=== PATIENT | female | born 1955 | race Caucasian/White ===

== ENCOUNTER → 2019-06-11 | Outpatient (CLI) | payer MEDICARE ==
[~2019-06-11] MED LIST: DOBUTamine DRIP for NUC MED 500 MG in DEXTROSE/WATER 1 250ML.BAG IV ONE
--- NOTE | 2019-06-11 12:55 | ECHOS ---
STRESS ECHOCARDIOGRAM DATE OF SERVICE: 06/11/2019 INDICATIONS: Chest pain. MEDICATIONS: Pepcid, Losartan HCTZ, amlodipine. BASELINE HEART RATE: 84 BASELINE BLOOD PRESSURE: 143/66 MAXIMUM HEART RATE: 132 MAXIMUM BLOOD PRESSURE: 152/40 85% MPHR: 131 100% MPHR: 154 METS: MAXIMUM STAGE REACHED: TOTAL EXERCISE TIME: CLINICAL INFORMATION: Baseline rhythm is a sinus mechanism, rate of 84, normal axis and intervals, normal electrocardiogram. Baseline blood pressure 143/66 mmHg. Patient received infusion of dobutamine per protocol reaching a peak rate of 132 beats per minute which is equal to 85% maximum predicted heart rate. Peak blood pressure 152/40 mmHg. Electrocardiograph monitoring revealed no evidence of diagnostic ischemic ST-T deviation. Baseline echocardiogram revealed normal wall thickening and motion. At peak exercise, there was normal wall motion augmentation with no hypokinesis or dyskinesis. CONCLUSION: 1. Normal electrocardiographic response to dobutamine infusion. 2. Normal stress echocardiogram with no evidence of stress-induced ischemia. MMODL / IJN: [id number] /
== END | disposition home or self-care (01) ==
LOC: RADNMMAIN 09:35
PROVIDERS: ATTEND Nurse Practitioner Adult Health
DX: I10 Essential (primary) hypertension (principal)
CPT/HCPCS: 93351; J1250